=== PATIENT | female | born 1975 | race Two or more races ===

== ENCOUNTER 2017-12-24 06:03 | Day surgery (SDC) | payer OTHER ==
[~2017-12-24 06:03] MED LIST: PRENATAL1 TAB PO
== END 2017-12-24 12:50 | disposition home or self-care (01) ==
LOC: CIR.AMB 06:03
DX: N84.0 Polyp of corpus uteri (principal)

== ENCOUNTER 2019-03-31 15:30 | Outpatient (CLI) | payer OTHER | END 2019-03-31 15:35 | disposition home or self-care (01) | LOC: LAB 15:30 | DX: N61.1 Abscess of the breast and nipple (principal) ==

== ENCOUNTER → 2019-04-13 14:30 | Outpatient (CLI) | payer OTHER | END | disposition home or self-care (01) | LOC: LAB 14:30 | DX: N61.1 Abscess of the breast and nipple (principal) ==

== ENCOUNTER 2019-05-04 16:31 | Outpatient (CLI) | payer OTHER | END 2019-05-04 16:40 | disposition home or self-care (01) | LOC: LAB 16:31 | DX: N61.1 Abscess of the breast and nipple (principal) ==

== ENCOUNTER 2019-06-14 16:31 | Outpatient (CLI) | payer OTHER | END 2019-06-14 16:41 | disposition home or self-care (01) | LOC: LAB 16:31 | DX: N61.1 Abscess of the breast and nipple (principal) ==

== ENCOUNTER 2021-08-22 05:55 | Day surgery (SDC) | payer OTHER | END 2021-08-22 13:10 | disposition home or self-care (01) | LOC: CIR.AMB 05:55 | PROVIDERS: ATTEND Obstetrics & Gynecology Maternal & Fetal Medicine | DX: N84.0 Polyp of corpus uteri (principal); Z20.822 Contact with and (suspected) exposure to COVID-19 ==

== ENCOUNTER 2022-03-18 15:15 | Emergency (ER) | payer OTHER ==
[~2022-03-18] VITALS: Ht 157.5 cm; Wt 65.8 kg
[2022-03-18] MEDS ORDERED: BACTRIM DS TAB1 EACH PO (18:20)
== END 2022-03-18 19:55 | disposition home or self-care (01) ==
LOC: ER 15:15
DX: N39.0 Urinary tract infection, site not specified (principal); B96.29 Other Escherichia coli [E. coli] as the cause of diseases classified elsewhere; R10.2 Pelvic and perineal pain; N20.0 Calculus of kidney

== ENCOUNTER 2022-06-07 08:15 | Inpatient (IN) | payer OTHER ==
[~2022-06-07] VITALS: Ht 157.5 cm; Wt 65.8 kg
[~2022-06-07 08:15] MED LIST changes: +BACTRIM DS TAB1 EACH PO
[2022-06-15] MEDS ORDERED: KETO10TA2 PO (09:34)
[2022-06-15] MEDS ORDERED: OXYC1TAB9 PO (09:35)
== END 2022-06-15 10:08 | disposition home or self-care (01) | DRG 743 ==
LOC: O/R 06-12 06:05 → SURG 06-12 08:15 → OB/GYN 06-12 13:58 → SURG 06-12 20:30 → OB/GYN 06-15 10:08
PROVIDERS: ADMIT Obstetrics & Gynecology Maternal & Fetal Medicine; ATTEND Obstetrics & Gynecology Maternal & Fetal Medicine
PROC: 0UT70ZZ Resection of Bilateral Fallopian Tubes, Open Approach (ICD-10-PCS; 2022-06-12)
PROC: 0UT20ZZ Resection of Bilateral Ovaries, Open Approach (ICD-10-PCS; 2022-06-12)
PROC: 0UT90ZZ Resection of Uterus, Open Approach (ICD-10-PCS; principal; 2022-06-12 20:30)
DX: D25.1 Intramural leiomyoma of uterus (principal); N83.01 Follicular cyst of right ovary; N83.12 Corpus luteum cyst of left ovary; N83.291 Other ovarian cyst, right side; N83.292 Other ovarian cyst, left side; Z20.822 Contact with and (suspected) exposure to COVID-19

== ENCOUNTER 2022-07-26 08:52 | Outpatient (CLI) | payer OTHER ==
[~2022-07-26 08:52] MED LIST changes: +KETO10TA2 PO; +OXYC1TAB9 PO
== END 2022-07-26 09:09 | disposition home or self-care (01) ==
LOC: TOM 08:52
PROVIDERS: ATTEND Obstetrics & Gynecology Maternal & Fetal Medicine
DX: R10.2 Pelvic and perineal pain (principal)